=== PATIENT | female | born 1970 | race Two or more races ===

== ENCOUNTER 2024-04-07 20:37 | Emergency (ER) | payer MEDICAID, OTHER ==
[~2024-04-07] VITALS: Ht 165.1 cm; Wt 99.0 kg
[2024-04-07] MEDS: LIDOCAINE 5% PATCH TOP SCH (00:40)
[2024-04-07] MEDS: CYCLOBENZAPRINE 10MG TABLET PO ONE (00:40)
[2024-04-07 20:43] VITALS: O2SAT 99
[2024-04-07] MEDS ORDERED: ACETAMINOPHEN 325MG TABLET PO ONE (22:00)
[2024-04-08] MEDS ORDERED: NAPR-1176 MT (00:10)
[2024-04-08] MEDS ORDERED: LIDO700A15 TP (00:10)
[2024-04-08] MEDS: MORPHINE SULFATE 4 MG/ML INJ (FOR IV/IM USE) IM ONE (00:46)
[2024-04-08 00:49] VITALS: BP 115/70; PULSE 67; RESP 17; TEMP 36.50292; O2SAT 99
== END 2024-04-08 00:49 | disposition home or self-care (01) ==
LOC: ER 20:37
DX: G89.29 Other chronic pain (principal); M54.50 Low back pain, unspecified; M25.551 Pain in right hip; J45.909 Unspecified asthma, uncomplicated; E11.9 Type 2 diabetes mellitus without complications; Z86.73 Personal history of transient ischemic attack (TIA), and cerebral infarction without residual deficits; Z90.710 Acquired absence of both cervix and uterus; Z98.890 Other specified postprocedural states; Z90.49 Acquired absence of other specified parts of digestive tract; Z88.0 Allergy status to penicillin
CPT/HCPCS: 99283; 73502; 96372; J2270

== ENCOUNTER 2024-09-01 18:18 | Emergency (ER) | payer BC, MEDICAID ==
[~2024-09-01] VITALS: Ht 163.8 cm; Wt 95.7 kg
[~2024-09-01 18:18] MED LIST: LIDO700A15 TP; NAPR-1176 MT
[2024-09-01 18:26] VITALS: BP 111/77; PULSE 76; RESP 16; TEMP 36.8; O2SAT 98
[2024-09-01] MEDS ORDERED: T3 PO (19:55)
[2024-09-01] MEDS ORDERED: BO1 TP (19:55)
[2024-09-01] MEDS ORDERED: CLIN-194 MT (19:55)
== END 2024-09-01 20:06 | disposition home or self-care (01) ==
LOC: ER 18:18
DX: T25.211A Burn of second degree of right ankle, initial encounter (principal); L03.116 Cellulitis of left lower limb; J45.909 Unspecified asthma, uncomplicated; E11.9 Type 2 diabetes mellitus without complications; Z86.73 Personal history of transient ischemic attack (TIA), and cerebral infarction without residual deficits; Z90.710 Acquired absence of both cervix and uterus; Z90.49 Acquired absence of other specified parts of digestive tract; Z79.1 Long term (current) use of non-steroidal anti-inflammatories (NSAID); Z88.0 Allergy status to penicillin; Z79.899 Other long term (current) drug therapy; X58.XXXA Exposure to other specified factors, initial encounter; Y93.89 Activity, other specified; Y92.89 Other specified places as the place of occurrence of the external cause; Y99.8 Other external cause status
CPT/HCPCS: 99283